=== PATIENT | male | born 1980 | race American Indian/Alaskan Native ===

== ENCOUNTER 2021-10-20 12:34 | Emergency (ER) | payer MEDICAID ==
[2021-10-20] MEDS ORDERED: METOPROLOL TARTRATE 50 MG TAB PO ONE (13:27)
[2021-10-20] MEDS ORDERED: PANTOPRAZOLE 40 MG TAB PO ONE (13:27)
[2021-10-20] MEDS ORDERED: ACETAMINOPHEN 325 MG TAB PO ONE (13:27)
[2021-10-20] MEDS ORDERED: IBUPROFEN 400 MG TAB PO ONE (13:27)
--- NOTE | 2021-10-20 13:29 | Emergency Department Report ---
ED General Adult HPI - General Chief complaint: Chest Pain Stated complaint: CHEST PAIN/PALPITATION Time Seen by Provider: 10/20/21 13:20 Source: patient, EMS ( EMS documentation not available at time of chart dictation ), RN notes reviewed Mode of arrival: Stretcher Limitations: Other (Cerebral palsy) - History of Present Illness Initial comments: The patient was evaluated in the emergency department for symptoms described in the history of present illness. He/she was evaluated in the context of the global COVID-19 pandemic, which necessitated consideration that the patient might be at risk for infection with the virus that causes COVID-19. Ins titutional protocols and algorithms that pertain to the evaluation of patients at risk for COVID-19 are in a state of rapid change based on information released by regulatory bodies including the CDC and federal and state organizations. These policies and algorithms were followed during the patient's care in the emergency department. Please note that these policies, procedures and recommendations changed on a rapid basis. This is a 41-year-old gentleman who is right-hand dominant with a history of cerebral palsy, who may have a history of hypertension, who presents to the department today with complaint of central and left-sided anterior chest wall pain, present intermittently for a month. Denies vomiting, diaphoresis and exertional shortness of breath. No travel, surgery, or immobilization. Denies headache, neck pain, abdominal pain, vomiting, diaphoresis and exertional shortness of breath, and also denies a personal and family history of DVT and pulmonary embolism risk factors. He has been out of his blood pressure medication for a few weeks, he does not recall the name of this medicine. No recent aspirin consumption. Chest wall pain increases with palpation and decreases with rest. -: days(s) Location: chest Severity scale (0 -10): 2 Consistency: constant Improves with: rest Worsens with: movement - Related Data Previous Rx's Medication Instructions Recorded Last Taken Type Metoprolol [Lopressor TAB] 25 mg PO BID #60 tablet 10/20/21 Unknown Rx Allergies Allergy/AdvReac Type Severity Reaction Status Date / Time Penicillins Allergy Unknown Unknown Verified 10/20/21 13:33 ED Review of Systems ROS: Stated complaint: CHEST PAIN/PALPITATION Other details as noted in HPI Constitutional: denies: fever Eyes: denies: eye discharge ENT: denies: epistaxis Respiratory: denies: cough, shortness of breath Cardiovascular: chest pain (Chest wall pain) Gastrointestinal: denies: abdominal pain, hematemesis, melena, hematochezia Musculoskeletal: arthralgia Neurological: denies: weakness ED Past Medical Hx - Medications Home Medications: Home Medications Medication Instructions Recorded Confirmed Last Taken Type Metoprolol [Lopressor TAB] 25 mg PO BID #60 tablet 10/20/21 Unknown Rx ED Physical Exam - General Limitations: No Limitations General appearance: alert, in no apparent distress - Head Head exam: Present: atraumatic, normocephalic - Eye Eye exam: Present: normal appearance, EOMI. Absent: nystagmus - ENT ENT exam: Present: normal exam, normal orophraynx, mucous membranes moist, normal external ear exam - Neck Neck exam: Present: normal inspection, full ROM. Absent: tenderness, meningismus - Respiratory Respiratory exam: Present: normal lung sounds bilaterally, chest wall tenderness. Absent: respiratory distress, wheezes, rales, rhonchi, stridor - Cardiovascular Cardiovascular Exam: Present: normal rhythm, tachycardia, normal heart sounds. Absent: bradycardia, irregular rhythm, systolic murmur, diastolic murmur, rubs, gallop - GI/Abdominal GI/Abdominal exam: Present: soft. Absent: distended, tenderness, guarding, rebound, rigid, pulsatile mass - Rectal Rectal exam: Present: deferred - Extremities Exam Extremities exam: Present: normal inspection, full ROM, other (2+ pulses noted in the bilateral upper and lower extremities. There is no palpable cord. negative Homans sign. Muscular compartments are soft. The pelvis is stable.). Absent: pedal edema, calf tenderness - Back Exam Back exam: Present: normal inspection. Absent: tenderness, CVA tenderness (R), CVA tenderness (L), paraspinal tenderness, vertebral tenderness - Neurological Exam Neurological exam: Present: alert, other (There is no facial droop. The tongue is midline. EOMI. 5 out of 5 strength in 4 extremities) - Psychiatric Psychiatric exam: Present: anxious - Skin Skin exam: Present: warm, dry, intact, normal color. Absent: rash ED Course Vital Signs 10/20/21 10/20/21 10/20/21 12:44 14:45 15:14 Temperature 98.3 F 97.2 F L Pulse Rate 102 H 109 H 109 H Respiratory 18 14 14 Rate Blood Pressure 189/107 Blood Pressure 156/90 189/107 [Left] O2 Sat by Pulse 96 94 Oximetry 10/20/21 15:54 Temperature Pulse Rate 94 H Respiratory 16 Rate Blood Pressure Blood Pressure 170/105 [Left] O2 Sat by Pulse 98 Oximetry - Reevaluation(s) Reevaluation #1: 10/20/21 15:25 Differential diagnosis, including but not limited to: GERD, gastritis, hiatal hernia, costochondritis, hypertension, noncompliance Assessment and plan: 41-year-old gentleman, who is low risk by Wells criteria for pulmonary embolism, who is not tachypneic or hypoxic, who is low risk for major adverse cardiac event as per heart score, presenting to the department today with a few days to weeks of chest wall pain. Troponin negative x1, acute myocardial infarction is therefore ruled out in the context of chest wall pain present for hours and days. Patient at low risk for major adverse cardiac event as per heart score. On my initial evaluation, the patient is speaking on his cellular phone. When I walked into the room, he is found to have reproducible chest wall tenderness. He has equal pulses in the upper and lower extremities, no pulsatile abdominal mass, and unremarkable x-ray of the chest. Aortic disease is unlikely. He is still persistently tachycardic and hypertensive after my initial therapy, so we will so we will treat with hydromorphone for pain. Reassess after medication has been administered 10/20/21 16:07 Feeling much improved. Tachycardia resolved. Blood pressure improved. Resting comfortably in stretcher at this time, and in no acute distress. Discussed diagnostic findings with patient as well as clinical impression. Discharged with metoprolol for blood pressure, he may take Tylenol and Motrin [id number], follow-up with outpatient primary care and/or cardiology ED Medical Decision Making - Lab Data Result diagrams: 10/20/21 13:59 10/20/21 13:59 Vital Signs 10/20/21 10/20/21 10/20/21 12:44 14:45 15:14 Temperature 98.3 F 97.2 F L Pulse Rate 102 H 109 H 109 H Respiratory 18 14 14 Rate Blood Pressure 189/107 Blood Pressure 156/90 189/107 [Left] O2 Sat by Pulse 96 94 Oximetry Lab Results 10/20/21 10/20/21 10/20/21 Range/Units 13:59 13:59 13:59 WBC 8.6 (4.5-11.0) K/mm3 RBC 4.51 (3.65-5.03) M/mm3 Hgb 13.2 (11.8-15.2) gm/dl Hct 40.0 (35.5-45.6) % MCV 89 (84-94) fl MCH 29 (28-32) pg MCHC 33 (32-34) % RDW 14.1 (13.2-15.2) % Plt Count 296 (140-440) K/mm3 PT 13.2 (12.2-14.9) Sec. INR 0.91 (0.87-1.13) Sodium 142 (137-145) mmol/L Potassium 4.0 (3.6-5.0) mmol/L Chloride 103.1 (98-107) mmol/L Carbon Dioxide 22 (22-30) mmol/L Anion Gap 21 mmol/L BUN 10 (9-20) mg/dL Creatinine 0.7 L (0.8-1.3) mg/dL Estimated GFR > 60 ml/min BUN/Creatinine Ratio 14 % Glucose 90 (75-100) mg/dL Calcium 9.1 (8.4-10.2) mg/dL Magnesium 2.00 (1.7-2.3) mg/dL Total Bilirubin 0.50 (0.1-1.2) mg/dL AST 36 (5-40) units/L ALT 29 (7-56) units/L Alkaline Phosphatase 76 (35-129) units/L Total Creatine Kinase 452 H (55-170) units/L Troponin T < 0.010 (0.00-0.029) ng/mL Total Protein 7.7 (6.3-8.2) g/dL Albumin 4.5 (3.9-5) g/dL Albumin/Globulin Ratio 1.4 % TSH (0.270-4.200) mlU/mL 10/20/21 Range/Units 13:59 WBC (4.5-11.0) K/mm3 RBC (3.65-5.03) M/mm3 Hgb (11.8-15.2) gm/dl Hct (35.5-45.6) % MCV (84-94) fl MCH (28-32) pg MCHC (32-34) % RDW (13.2-15.2) % Plt Count (140-440) K/mm3 PT (12.2-14.9) Sec. INR (0.87-1.13) Sodium (137-145) mmol/L Potassium (3.6-5.0) mmol/L Chloride (98-107) mmol/L Carbon Dioxide (22-30) mmol/L Anion Gap mmol/L BUN (9-20) mg/dL Creatinine (0.8-1.3) mg/dL Estimated GFR ml/min BUN/Creatinine Ratio % Glucose (75-100) mg/dL Calcium (8.4-10.2) mg/dL Magnesium (1.7-2.3) mg/dL Total Bilirubin (0.1-1.2) mg/dL AST (5-40) units/L ALT (7-56) units/L Alkaline Phosphatase (35-129) units/L Total Creatine Kinase (55-170) units/L Troponin T (0.00-0.029) ng/mL Total Protein (6.3-8.2) g/dL Albumin (3.9-5) g/dL Albumin/Globulin Ratio % TSH 0.283 (0.270-4.200) mlU/mL - EKG Data -: EKG Interpreted by [place] EKG shows normal: sinus rhythm Rate: normal - EKG Data 10/20/21 15:21 The EKG is interpreted at 14: 21 Sinus rhythm, tachycardia, rate 103 bpm. Normal axis, normal P wave axis, early repolarization, high left ventricular voltage. This is an abnormal EKG. This is not a STEMI - Radiology Data Radiology results: pending, report reviewed, image reviewed CHEST 2 VIEWS INDICATION / CLINICAL INFORMATION: chest wall pain. COMPARISON: None available. FINDINGS: SUPPORT DEVICES: None. HEART / MEDIASTINUM: No sign ificant abnormality. LUNGS / PLEURA: No significant pulmonary or pleural abnormality. No pneumothorax. ADDITIONAL FINDINGS: No significant additional findings. IMPRESSION: 1. No acute findings. Signer Name: Mariaelena Fairchild MD Signed: 10/20/2021 1:10 PM Workstation Name: [id number] Critical care attestation.: If time is entered above; I have spent that time in minutes in the direct care of this critically ill patient, excluding procedure time. ED Disposition Clinical Impression: Elevated blood pressure reading, Chest wall pain Disposition: HOME / SELF CARE / HOMELESS Is pt being admited?: No Does the pt Need Aspirin: No Condition: Good Instructions: Costochondritis Additional Instructions: Recommend that patient rest and avoid heavy lifting and strenuous physical activities. Avoid consumption of alcohol, tobacco and smoke products. Follow- up with a primary care doctor or dairy management specialist within the next 3 to 5 days. Patient is found to have elevated blood pressure while in the emergency room. Please make certain to take blood pressure medications; noncompliance with blood pressure medication may result in uncontrolled hypertension, which is a risk factor for , disability, paralysis, stroke and heart attack. Patient may alternate ice packs and heat packs as needed for physical pain, and may take Motrin [id number], 600 mg by mouth with food, every 6 hours as needed for pain, alternating with Tylenol [id number], 650 mg by mouth, every 6 hours as needed for physical pain. For the patient's convenience, he will receive a blood pressure prescription medication for 1 month. Patient is given list of local primary care doctors and dairy management specialist that he may follow-up with. Please return to the emergency room right away with new pain, worsened pain, migration of pain, projectile vomiting, change in mental status, confusion, inability tolerate liquid feeds, new, worsened or different symptoms not present on the initial emergency room evaluation Referrals: [facility] [Provider Group] - 3-5 [facility] - 3-5 Days [facility] [Provider Group] - 3-5 Days Forms: Work/School Release Form(ED) Heart Score - HEART Score History: Slightly suspicious EKG: Non-specific Age: < 45 Risk factors: 1-2 risk factors Troponin: < normal limit HEART Score: 2 - EKG Read Time Time EKG Completed: 14:10 EKG Read Time: 14:10 - Critical Actions Critical Actions: 0-3 pts:0.9-1.7%risk of adverse cardiac event.Candidate for discharge
--- NOTE | 2021-10-20 14:14 | XRay Report ---
CHEST 2 VIEWS INDICATION / CLINICAL INFORMATION: chest wall pain. COMPARISON: None available. FINDINGS: SUPPORT DEVICES: None. HEART / MEDIASTINUM: No significant abnormality. LUNGS / PLEURA: No significant pulmonary or pleural abnormality. No pneumothorax. ADDITIONAL FINDINGS: No significant additional findings. IMPRESSION: 1. No acute findings. Signer Name: Mariaelena Fairchild MD Signed: 10/20/2021 2:10 PM Workstation Name: [id number]
[2021-10-20 14:21] LABS: Hemoglobin 13.2 gm/dl (11.8-15.2); Mean Corpuscular HGB Conc 33 % (32-34); Mean Corpuscular Volume 89 fl (84-94); Platelet Count 296 K/mm3 (140-440); Red Blood Count 4.51 M/mm3 (3.65-5.03); Red Cell Distribution Width 14.1 % (13.2-15.2)
[2021-10-20 14:45] LABS: INR 0.91 (0.87-1.13)
[2021-10-20 14:50] LABS: Alanine Aminotransferase 29 units/L (7-56); Albumin 4.5 g/dL (3.9-5); Blood Urea Nitrogen 10 mg/dL (9-20); Calcium 9.1 mg/dL (8.4-10.2); Hemolysis Index 2
[2021-10-20 14:53] LABS: BUN/Creatinine Ratio 14
[2021-10-20] MEDS ORDERED: HYDROmorphone 0.5 MG/0.5 ML INJ IM ONE (15:20)
[2021-10-20 15:54] VITALS: BP 170/105
--- NOTE | 2021-10-22 17:35 | Electrocardiograph Report ---
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
== END 2021-10-20 17:00 | disposition home or self-care (01) ==
LOC: ED 12:34
DX: R07.89 Other chest pain (principal); R03.0 Elevated blood-pressure reading, without diagnosis of hypertension; Z88.0 Allergy status to penicillin
CPT/HCPCS: 36415; 71046; 80053; 82550; 83735; 84443; 84484; 85027; 85610; 93005; 99284